=== PATIENT | female | born 1990 | race Caucasian/White ===

== ENCOUNTER 2023-02-05 13:29 | Observation (INO) | payer SELFPAY ==
[2023-02-05 13:43] VITALS: BMI 33.8
[2023-02-05] MEDS ORDERED: SODIUM CHLORIDE 1,000 ML IV SCH (15:30)
[2023-02-05 15:50] LABS: HEMOGLOBIN 7.7 GM/dL (10.7-15.3); MCHC 29.7 g/dl (32.0-36.0); MEAN PLT VOLUME 8.3 fl (7.5-11.1); PLATELET COUNT 410 10^3/uL (134-434); RBC 4.25 M/mm3 (3.60-5.2); RDW 20.2 % (11.6-15.6); WHITE BLOOD COUNT 10.9 K/mm3 (4.0-10.0)
[2023-02-05 15:58] LABS: POTASSIUM 4.1 mmol/L (3.5-5.1)
[2023-02-05 16:00] LABS: ALBUMIN 3.1 g/dl (3.4-5.0); CALCIUM 8.7 mg/dL (8.5-10.1); MCH 18.1 pg (25.7-33.7)
[2023-02-05 16:01] LABS: BLOOD UREA NITROGEN 6.1 mg/dL (7-18)
[2023-02-05 16:04] LABS: CREATININE 0.4 mg/dL (0.55-1.3)
[2023-02-05] MEDS ORDERED: ACETAMINOPHEN 500 MG TABLET (FP) PO ONE (16:04)
[2023-02-05 16:05] LABS: BILIRUBIN,TOTAL 0.3 mg/dL (0.2-1); TOT PROT 7.6 g/dl (6.4-8.2)
[2023-02-05] MEDS ORDERED: ACETAMINOPHEN 500 MG TABLET (FP) ONE (16:10)
[2023-02-05] MEDS ORDERED: morphine CARPU-JECT 4 MG/1 ML DISP.SYRIN IVPUSH ONE (17:45)
[2023-02-05] MEDS ORDERED: morphine SULFATE 4 MG/ML VIAL ONE (17:45)
[2023-02-05 19:46] LABS: HEMATOCRIT 21.5 % (32.4-45.2); MCHC 30.5 g/dl (32.0-36.0); MEAN CELL VOLUME 60.8 fl (80-96); MEAN PLT VOLUME 8.1 fl (7.5-11.1); PLATELET COUNT 305 10^3/uL (134-434); RBC 3.53 M/mm3 (3.60-5.2); RDW 20.3 % (11.6-15.6); WHITE BLOOD COUNT 12.5 K/mm3 (4.0-10.0)
[2023-02-05 19:53] LABS: MCH 18.6 pg (25.7-33.7)
[2023-02-05 19:54] LABS: HEMOGLOBIN 6.6 GM/dL (10.7-15.3)
[2023-02-05] MEDS ORDERED: ACETAMINOPHEN 325 MG TABLET (FP) ONE (20:12)
[2023-02-05] MEDS ORDERED: ACETAMINOPHEN 325 MG TABLET (FP) PO ONE (20:24)
[2023-02-05] MEDS ORDERED: ACETAMINOPHEN 325 MG TABLET (FP) PO PRN (22:53)
[2023-02-05] MEDS ORDERED: ACETAMINOPHEN 1000 MG/100 ML BAG IVPB PRN (22:59)
[2023-02-05] MEDS ORDERED: DEXTROSE 5%-NORMAL SALINE 1,000 ML IV SCH (23:00)
[2023-02-05] MEDS ORDERED: FERROUS SO4 325 MG TABLET (FP) PO SCH (23:45)
[2023-02-06 03:11] LABS: POTASSIUM 4.8 mmol/L (3.5-5.1)
[2023-02-06 03:13] LABS: BLOOD UREA NITROGEN 5.9 mg/dL (7-18); CALCIUM 7.9 mg/dL (8.5-10.1); MAGNESIUM 1.8 mg/dL (1.8-2.4)
[2023-02-06 03:16] LABS: CREATININE 0.4 mg/dL (0.55-1.3)
[2023-02-06 03:17] LABS: PHOSPHOROUS 3.8 mg/dL (2.5-4.9)
[2023-02-06 03:18] LABS: BILIRUBIN,TOTAL 1.2 mg/dL (0.2-1); TOT PROT 5.9 g/dl (6.4-8.2)
[2023-02-06 03:51] LABS: ALBUMIN 2.3 g/dl (3.4-5.0)
[2023-02-06 05:30] LABS: INR 1.01 (0.83-1.09); PROTHROMBIN TIME (PATIENT) 11.7 SEC (9.7-13.0)
[2023-02-06 06:41] LABS: BASO % 0.3 % (0-2.0); EOS % 1.4 % (0-4.5); HEMATOCRIT 27.6 % (32.4-45.2); HEMOGLOBIN 8.9 GM/dL (10.7-15.3); LYMPH % 17.2 % (8-40); MCH 21.4 pg (25.7-33.7); MCHC 32.1 g/dl (32.0-36.0); MEAN CELL VOLUME 66.7 fl (80-96); MEAN PLT VOLUME 8.5 fl (7.5-11.1); MONO % 5.5 % (3.8-10.2); NEUT % 75.6 % (42.8-82.8); PLATELET COUNT 276 10^3/uL (134-434); RBC 4.14 M/mm3 (3.60-5.2); RDW 26.2 % (11.6-15.6); WHITE BLOOD COUNT 10.4 K/mm3 (4.0-10.0)
[2023-02-06 08:15] LABS: EPI CELLS 14 /uL (0-25.1); HYALINE CASTS 11 /uL (0-3.1); PH,URINE 5.5 (5.0-8.0); URINE APPEARANCE TURBID; URINE BACTERIA 83 /uL (0-1359); URINE BILIRUBIN 1+ (NEGATIVE); URINE COLOR RED; URINE GLUCOSE (UA) NEGATIVE (NEGATIVE); URINE KETONE 1+ (NEGATIVE); URINE LEUK ESTERASE 2+ (NEGATIVE); URINE NITRITE NEGATIVE (NEGATIVE); URINE PROTEIN 2+ (NEGATIVE); URINE RBC 32513 /uL (0-23.9); URINE UROBILINOGEN 0.2 mg/dL (0.2-1.0); URINE WBC 931 /uL (0-25.8)
[2023-02-06 08:23] LABS: COCAINE, UR NEGATIVE (NEGATIVE); METHADONE, UR NEGATIVE (NEGATIVE); OPIATES, URI NEGATIVE (NEGATIVE); PHENCYCLIDINE,URINE NEGATIVE (NEGATIVE); URINE AMPHETAMINES NEGATIVE (NEGATIVE)
[2023-02-06 08:24] LABS: URINE BARBITURATES NEGATIVE (NEGATIVE); URINE BENZODIAZEPINES NEGATIVE (NEGATIVE)
[2023-02-06 08:41] VITALS: BP 102/67; PULSE 84; RESP 18; TEMP 97.9
[2023-02-06 10:00] LABS: ANISOCYTOSIS 3+; MACROCYTOSIS 0; OVALOCYTE 1+
[2023-02-06] MEDS ORDERED: FERROUS SO4 325 MG TABLET (FP) PO SCH (10:00)
[2023-02-06] MEDS ORDERED: ASCORBIC ACID 500 MG TABLET (FP) PO SCH (10:00)
[2023-02-06] MEDS ORDERED: FOLIC ACID 1 MG TABLET (FP) PO SCH (10:00)
== END 2023-02-06 10:45 | disposition home or self-care (01) ==
LOC: JER 13:29 → JERBED 21:07 → J3W 02-06 03:45
PROVIDERS: ADMIT Internal Medicine; ATTEND Nurse Practitioner Family
PROC: 3E0337Z Introduction of Electrolytic and Water Balance Substance into Peripheral Vein, Percutaneous Approach (ICD-10-PCS; principal; 2023-02-05)
PROC: 30233N1 Transfusion of Nonautologous Red Blood Cells into Peripheral Vein, Percutaneous Approach (ICD-10-PCS; 2023-02-05)
DX: O03.9 Complete or unspecified spontaneous abortion without complication (principal); D62 Acute posthemorrhagic anemia; Z3A.16 16 weeks gestation of pregnancy
CPT/HCPCS: 36415; 36430; 76817-TC; 80053; 80307; 81003; 82607; 82728; 82746; 82962; 83540; 83550; 83735; 84100; 84443; 84702; 84703; 85025; 85027; 85610; 85730; 86850; 86900; 86901; 86922; 88305-TC; 88307-TC; 93005; 93010; 99285-25; C9803-CS; G0378; P9058; U0003; U0005